=== PATIENT | male | born 1950 | race Hispanic/Latino ===

== ENCOUNTER 2017-12-25 14:12 | Emergency (ER) | payer MEDICAID ==
[2017-12-25 14:30] VITALS: BP 122/64
[2017-12-25 15:11] LABS: Basophils % (Auto) 0.4 % (0.0-1.8); Eosinophils # (Auto) 0.1 K/mm3 (0.0-0.4); Eosinophils % (Auto) 1.4 % (0.0-4.3); Hematocrit 36.9 % (35.5-45.6); Hemoglobin 12.4 gm/dl (11.8-15.2); Lymphocytes # (Auto) 0.5 K/mm3 (1.2-5.4); Lymphocytes % (Auto) 8.2 % (13.4-35.0); Mean Corpuscular HGB Conc 34 % (32-34); Mean Corpuscular Hemoglobin 29 pg (28-32); Mean Corpuscular Volume 87 fl (84-94); Monocytes # (Auto) 0.7 K/mm3 (0.0-0.8); Monocytes % (Auto) 11.4 % (0.0-7.3); Platelet Count 216 K/mm3 (140-440); Red Blood Count 4.23 M/mm3 (3.65-5.03); Red Cell Distribution Width 14.2 % (13.2-15.2)
[2017-12-25 15:26] LABS: INR 1.4 (0.87-1.13)
[2017-12-25 15:27] LABS: Partial Thromboplastin Time 45.2 Sec. (24.2-36.6)
[2017-12-25 15:31] LABS: Alanine Aminotransferase 14 units/L (7-56); Albumin 3.1 g/dL (3.9-5); BUN/Creatinine Ratio 14; Blood Urea Nitrogen 10 mg/dL (9-20); Calcium 8.5 mg/dL (8.4-10.2); Hemolysis Index 0
--- NOTE | 2017-12-25 15:58 | XRay Report ---
FINAL REPORT EXAM: XR CHEST ROUTINE 2V HISTORY: sob TECHNIQUE: Frontal and lateral chest radiographs. PRIORS: None. FINDINGS: Atherosclerotic calculi are seen in the thoracic aorta. The cardiomediastinal silhouette is normal. No focal consolidation. No pleural effusion. No pneumothorax. No acute osseous abnormality. IMPRESSION: No acute cardiopulmonary process.
--- NOTE | 2017-12-25 16:55 | Emergency Department Report ---
HPI - General Chief Complaint: Abdominal Pain Time Seen by Provider: 12/25/17 16:23 - HPI HPI: Room 25 The patient is a 67 -year-old male presenting with a chief complaint of ascites in need of paracentesis. The patient states for one week he's had increasing abdominal girth consistent with his diagnosis of cirrhosis and ascites as well as his known ventral hernia. The patient states his ascites makes it difficult for him to sleep or eat. Patient admits to nausea but denies vomiting. Patient states she has some slight shortness of breath for the past 2-3 days secondary to his increased abdominal girth. Patient denies chest pain or fever. The patient states the last time he received a paracentesis was approximately one year ago Location: Abdomen Duration: One week Quality: Pressure Severity: Moderate Modifying factors: [see above] Context: [see above] Mode of transportation: [not driving] ED Past Medical Hx - Past Medical History Hx Liver Disease: Yes (Hepatitis C-treated. Cirrhosis) Additional medical history: Esophageal varices - Surgical History Additional Surgical History: 3 Endo procedures. Hernia repair - Family History Family history: no significant - Social History Smoking Status: Former Smoker (none 15 years) Substance Use Type: None (denies illicit drug use) - Medications Home Medications: Home Medications Medication Instructions Recorded Confirmed Last Taken Type HYDROcodone/ACETAMINOPHEN [Meredith 1 - 2 each PO Q4-6H PRN #10 tablet 12/25/17 Unknown Rx 5-325 Tablet] ED Review of Systems ROS: Stated complaint: SOB/WEAKNESS Other details as noted in HPI Constitutional: denies: fever Respiratory: shortness of breath Cardiovascular: denies: chest pain Gastrointestinal: abdominal pain, nausea. denies: vomiting Musculoskeletal: back pain Physical Exam - Physical Exam Vital Signs: Vital Signs 12/25/17 14:21 Temperature 97.7 F Pulse Rate 71 Respiratory 22 Rate Blood Pressure 122/64 Blood Pressure 123/64 [Right] O2 Sat by Pulse 98 Oximetry Physical Exam: GENERAL: The patient is well-developed well-nourished male sitting on stretcher not appear to be in acute distress. [] HEENT: Normocephalic. Atraumatic. Extraocular motions are intact. Patient has moist mucous membranes. NECK: Supple. No meningitic signs are noted. There is no adenopathy noted. CHEST/LUNGS: Clear to auscultation. There is no respiratory distress noted. HEART/CARDIOVASCULAR: Regular. There is no tachycardia. There is no gallop rub or murmur. ABDOMEN: There is a large ventral hernia that is easily reducible but also contains a large amount of ascites. Reducing the hernia caused the patient discomfort as the increased pressure from ascites pushes in to his abdomen SKIN: There is no rash. There is no diaphoresis. NEURO: The patient is awake, alert, and oriented. The patient is cooperative. The patient has no focal neurologic deficits. The patient has normal speech and gait. MUSCULOSKELETAL: There is no evidence of acute injury. ED Course Vital Signs 12/25/17 14:21 Temperature 97.7 F Pulse Rate 71 Respiratory 22 Rate Blood Pressure 122/64 Blood Pressure 123/64 [Right] O2 Sat by Pulse 98 Oximetry ED Medical Decision Making - Lab Data Result diagrams: 12/25/17 15:00 12/25/17 15:00 Laboratory Tests 12/25/17 12/25/17 12/25/17 15:00 15:00 15:00 WBC 6.0 RBC 4.23 Hgb 12.4 Hct 36.9 MCV 87 MCH 29 MCHC 34 RDW 14.2 Plt Count 216 Lymph % (Auto) 8.2 L Burt % (Auto) 11.4 H Eos % (Auto) 1.4 Baso % (Auto) 0.4 Lymph # 0.5 L Burt # 0.7 Eos # 0.1 Baso # 0.0 Seg Neutrophils % 78.6 H Seg Neutrophils # 4.8 PT 18.0 H INR 1.40 H APTT 45.2 H Sodium 136 L Potassium 4.0 Chloride 97.7 L Carbon Dioxide 26 Anion Gap 16 BUN 10 Creatinine 0.7 L Estimated GFR > 60 BUN/Creatinine Ratio 14 Glucose 129 H Calcium 8.5 Total Bilirubin 0.80 AST 21 ALT 14 Alkaline Phosphatase 80 NT-Pro-B Natriuret Pep Total Protein 8.0 Albumin 3.1 L Albumin/Globulin Ratio 0.6 12/25/17 15:00 WBC RBC Hgb Hct MCV MCH MCHC RDW Plt Count Lymph % (Auto) Burt % (Auto) Eos % (Auto) Baso % (Auto) Lymph # Burt # Eos # Baso # Seg Neutrophils % Seg Neutrophils # PT INR APTT Sodium Potassium Chloride Carbon Dioxide Anion Gap BUN Creatinine Estimated GFR BUN/Creatinine Ratio Glucose Calcium Total Bilirubin AST ALT Alkaline Phosphatase NT-Pro-B Natriuret Pep 144.8 Total Protein Albumin Albumin/Globulin Ratio - Radiology Data Radiology results: report reviewed (chest x-ray), image reviewed (chest x-ray) interpreted by me: Chest x-ray-no focal infiltrate, no pneumothorax - Medical Decision Making I discussed with the patient that there is currently not a radiologist in the hospital to perform an ultrasound-guided paracentesis. The patient was offered admission to the hospital but warned that he would likely not get the procedure until Wednesday. The patient prefers to go home and return to the emergency department 12/27/2017. I placed an order for an ultrasound-guided paracentesis to be performed that day at 08:00. The patient states he will come to the emergency department early in preparation for the procedure. Strong warnings were given to return to the emergency Department should the patient develop new symptoms, worsening symptoms or fever - Differential Diagnosis ascites Critical care attestation.: If time is entered above; I have spent that time in minutes in the direct care of this critically ill patient, excluding procedure time. ED Disposition Clinical Impression: Ascites, Ventral hernia Disposition: [id number] TO HOME OR SELFCARE Is pt being admited?: No Does the pt Need Aspirin: No Condition: Stable Instructions: Ascites (ED) Additional Instructions: Return to the emergency department immediately should you develop worsening symptoms, fever, inability to tolerate food or liquid or any other concerns. Prescriptions: HYDROcodone/ACETAMINOPHEN [Meredith 5-325 Tablet] 1 - 2 each PO Q4-6H PRN #10 tablet PRN Reason: Pain Referrals: [facility], emergency department [Other] - 12/27/17 7:00 am (Return to the emergency department 12/27/2017 in preparation for an ultrasound-guided paracentesis.) Time of Disposition: 17:07
== END 2017-12-25 18:00 | disposition home or self-care (01) ==
LOC: ED 14:12
DX: K43.9 Ventral hernia without obstruction or gangrene (principal); R18.8 Other ascites; Z87.891 Personal history of nicotine dependence
CPT/HCPCS: 36415; 71046; 80053; 83880; 85025; 85610; 85730; 99283